=== PATIENT | female | born 1980 | race Caucasian/White ===

== ENCOUNTER 2020-03-16 15:33 | Emergency (ER) | payer BC ==
[~2020-03-16] VITALS: Ht 160 cm; Wt 63.6 kg
[2020-03-16 16:16] VITALS: BP 150/91
== END 2020-03-16 16:05 | disposition home or self-care (01) ==
LOC: ER 15:33
DX: R51.9 Headache, unspecified (principal); R09.81 Nasal congestion; J39.2 Other diseases of pharynx; Z20.828 Contact with and (suspected) exposure to other viral communicable diseases
CPT/HCPCS: 36415; 87635; 99283